=== PATIENT | female | born 1945 | race American Indian/Alaskan Native ===

== ENCOUNTER 2018-11-20 19:42 | Inpatient (IN) | payer MEDICAID, OTHER ==
[2018-11-20] MEDS ORDERED: ASPIRIN PO ONE (20:25)
--- NOTE | 2018-11-20 20:54 | Emergency Department Report ---
ED Chest Pain HPI - General Chief Complaint: Chest Pain Stated Complaint: CHEST PAIN Time Seen by Provider: 11/20/18 20:31 Source: patient, family Mode of arrival: Ambulatory Limitations: Language Barrier - History of Present Illness Initial Comments: 72-year-old black female presents to the emergency department with complaint of midsternal chest pain with radiation towards the back and some associated dizziness. She says that has been going on intermittently over the past few days but started becoming more consistent and intense beginning this morning. She did not take anything for her symptoms prior to presentation. She has a past medical history of back surgery, eye surgery, hypertension. No recent travel or sick contacts at home. She is not a smoker and denies any illicit drug use. Severity scale (0 -10): 7 - Related Data Home Medications Medication Instructions Recorded Confirmed Last Taken No Known Home Medications [No 11/20/18 11/20/18 Unknown Reported Home Medications] Allergies Allergy/AdvReac Type Severity Reaction Status Date / Time No Known Allergies Allergy Verified 11/20/18 20:41 Heart Score - HEART Score History: Moderately suspicious EKG: Normal Age: > 65 Risk factors: 1-2 risk factors Troponin: < normal limit HEART Score: 4 - Critical Actions Critical Actions: 4-6 pts:12-16.6% risk of adverse cardiac event. Should be admitted ED Review of Systems ROS: Stated complaint: CHEST PAIN Other details as noted in HPI Comment: All other systems reviewed and negative Constitutional: denies: chills, fever Eyes: denies: eye pain, vision change ENT: denies: ear pain, throat pain Respiratory: denies: cough, shortness of breath Cardiovascular: chest pain. denies: palpitations Gastrointestinal: denies: abdominal pain, vomiting Genitourinary: denies: dysuria, discharge Musculoskeletal: back pain. denies: arthralgia Skin: denies: rash, lesions Neurological: other (dizziness). denies: headache, weakness ED Past Medical Hx - Past Medical History Hx Hypertension: Yes Additional medical history: Blind right eye - Surgical History Past Surgical History?: Yes Additional Surgical History: Back Surgery - Social History Smoking Status: Never Smoker Substance Use Type: None - Medications Home Medications: Home Medications Medication Instructions Recorded Confirmed Last Taken Type No Known Home Medications [No 11/20/18 11/20/18 Unknown History Reported Home Medications] ED Physical Exam - General Limitations: Language Barrier - Other Other exam information: GENERAL: The patient is well-developed well-nourished. HEENT: Normocephalic. Atraumatic. Patient has moist mucous membranes. EYES: Extraocular motions are intact. NECK: Supple. Trachea is midline. CHEST/LUNGS: Clear to auscultation. There is no respiratory distress noted. HEART/CARDIOVASCULAR: Regular. There is no tachycardia. There is no obvious murmur. ABDOMEN: Abdomen is soft, nontender. Patient has normal bowel sounds. There is no abdominal distention. SKIN: Skin is warm and dry. NEURO: The patient is awake, alert, and oriented. The patient is cooperative. The patient has no focal neurologic deficits. The patient has normal speech. MUSCULOSKELETAL: There is no tenderness or deformity. There is no limitation range of motion. There is no evidence of acute injury. ED Course Vital Signs 11/20/18 11/20/18 11/20/18 20:19 20:20 20:38 Temperature 98.6 F 98.6 F 98.1 F Pulse Rate 63 64 63 Respiratory 18 18 15 Rate Blood Pressure 174/72 174/72 Blood Pressure 161/79 [Left] O2 Sat by Pulse 99 99 100 Oximetry 11/20/18 11/20/18 21:00 22:00 Temperature Pulse Rate 59 L 58 L Respiratory 13 15 Rate Blood Pressure 156/75 161/79 Blood Pressure [Left] O2 Sat by Pulse 100 100 Oximetry JOCELYNN score - Jocelynn Score Age > 65: (1) Yes Aspirin use within the Past 7 Days: (0) No 3 or more CAD Risk Factors: (0) No 2 or more Angina events in past 24 hrs: (1) Yes Known CAD with more than 50% Stenosis: (0) No Elevated Cardiac Markers: (0) No ST Deviation Greater than 0.5mm: (0) No JOCELYNN Score: 2 ED Medical Decision Making - Lab Data Result diagrams: 11/20/18 21:11 11/20/18 21:11 - EKG Data -: EKG Interpreted by Me EKG shows normal: sinus rhythm, axis, intervals, QRS complexes (RBBB), ST-T waves Rate: normal - EKG Data When compared to previous EKG there are: previous EKG unavailable Interpretation: other (RBBB) - Radiology Data Radiology results: image reviewed interpreted by me: Chest x-ray does not show any pneumothorax, pleural effusion, pneumonia or obvious focal consolidation. - Medical Decision Making Patient presents with some midsternal chest pain radiating towards the back and some dizziness. EKG did not show any signs of ST elevation NC. So far, the lab s have been unremarkable including a negative troponin and negative d-dimer. Chest x-ray did not show any focal consolidation, pneumothorax, pneumonia, pleural effusions, or any other acute process. Patient has a moderate heart score and a JOCELYNN score of 2. It is been quite some time since the patient had a stress test, if she had on at all. For this reason the patient will be admitted to the hospital for further evaluation and treatment and was accepted for admission by the hospitalist, Dr. Rivera. - Differential Diagnosis NC, PE, Costochondritis, Pneumonia, CHF Critical Care Time: No Critical care attestation.: If time is entered above; I have spent that time in minutes in the direct care of this critically ill patient, excluding procedure time. ED Disposition Clinical Impression: Acute chest pain Hypertension Qualifiers: Hypertension type: essential hypertension Qualified Code(s): I10 - Essential (primary) hypertension Disposition: OP ADMIT IP TO THIS HOSP Is pt being admited?: Yes Condition: Stable Time of Disposition: 23:52
--- NOTE | 2018-11-20 20:55 | XRay Report ---
PROCEDURE: XR CHEST 1V AP TECHNIQUE: Chest radiograph single view. HISTORY: Chest Pain COMPARISONS: None . FINDINGS: Heart: There is mild cardiomegaly. Mediastinum/Vessels: Normal. Lungs/Pleural space: Lungs are hyperinflated. There are no confluent infiltrates or mass lesions. Pl eural spaces are clear.. Bony thorax: No acute osseous abnormality. Life support devices: None. IMPRESSION: COPD No acute pulmonary process Mild cardiomegaly. This document is electronically signed by Tang Valencia MD., November 20 2018 08:53:28 PM ET
[2018-11-20 21:20] LABS: Hematocrit 36.2 % (30.3-42.9); Hemoglobin 12.4 gm/dl (10.1-14.3); Mean Corpuscular HGB Conc 34 % (30-34); Mean Corpuscular Volume 88 fl (79-97); Platelet Count 191 K/mm3 (140-440); Red Blood Count 4.11 M/mm3 (3.65-5.03); Red Cell Distribution Width 14.8 % (13.2-15.2)
[2018-11-20 21:30] LABS: Lymphocytes % (Auto) 34.5 % (13.4-35.0)
[2018-11-20 21:31] LABS: Basophils % (Auto) 0.7 % (0.0-1.8); Eosinophils # (Auto) 0.1 K/mm3 (0.0-0.4); Eosinophils % (Auto) 1.9 % (0.0-4.3); Lymphocytes # (Auto) 2.4 K/mm3 (1.2-5.4); Monocytes # (Auto) 0.9 K/mm3 (0.0-0.8); Monocytes % (Auto) 12.4 % (0.0-7.3)
[2018-11-20 21:42] LABS: BUN/Creatinine Ratio 16; Blood Urea Nitrogen 18 mg/dL (7-17); Calcium 9.2 mg/dL (8.4-10.2); Hemolysis Index 0
[2018-11-20] MEDS ORDERED: NITROSTAT SL PRN (22:21)
[2018-11-20] MEDS ORDERED: MORPHINE IV PRN (22:26)
[2018-11-20] MEDS ORDERED: NACL 0.9% 1000 ML 1,000 ML ONE (22:27)
[2018-11-20] MEDS ORDERED: TYLENOL PO PRN (22:28)
--- NOTE | 2018-11-20 23:36 | History and Physical Report ---
CHIEF COMPLAINT: Chest pain. HISTORY OF PRESENT ILLNESS: The patient is a 72-year-old female who said she has been having sharp chest pain located in the midsternal area radiating to the back and associated with dizziness. There was no history of shortness of breath. No history of nausea or vomiting. No history of diaphoresis. Pain was relieved with pain medication. Pain is not affected by movement or breathing. The patient was presented for admission. PAST MEDICAL HISTORY: Pertinent for hypertension and blindness in the right eye. PAST SURGICAL HISTORY: Pertinent for back surgery as well as eye surgery. FAMILY HISTORY: Noncontributory. SOCIAL HISTORY: The patient does not smoke, does not drink alcohol, and does not use illicit drugs. MEDICATIONS: The patient's home medications are not known at this time. ALLERGIES: There are no known drug allergies. REVIEW OF SYSTEMS: CONSTITUTIONAL: There is no fever, no chills, no diaphoresis. HEENT: There is no headache or sore throat. CARDIOVASCULAR SYSTEM: Chest pain is present. No orthopnea. RESPIRATORY SYSTEM: There is no shortness of breath or cough. GASTROINTESTINAL SYSTEM: There is no nausea; no vomiting; no abdominal pain, diarrhea, or constipation. NEUROLOGICAL SYSTEM: Dizziness present. No numbness. No altered mental status. MUSCULOSKELETAL SYSTEM: There is no joint pain or swelling. DERMATOLOGICAL SYSTEM: There is no skin rash or itching. GENITOURINARY SYSTEM: There is no dysuria, hematuria, or flank pain. Rest of system review is normal. PHYSICAL EXAMINATION: GENERAL: At the time of exam, the patient was found to be alert, oriented x 3, and not in acute distress. VITAL SIGNS: Shows temperature of 98.6 degrees Fahrenheit, pulse of 63, respirations 18, blood pressure 174/72, O2 sat of 99% on room air. HEENT: Shows pupils on the left eye to be reactive to light and accommodating. Extraocular muscles are intact. NECK: Supple with no JVD or carotid bruit. CARDIOVASCULAR SYSTEM: Shows normal first and second heart sounds with no gallops or murmur. RESPIRATORY SYSTEM: Shows good air entry on both sides of the lung with no abnormal breath sounds. GASTROINTESTINAL SYSTEM: Shows abdomen to be full, soft, nontender with no organomegaly or rigidity. NEUROLOGIC: Shows no focal deficit. MUSCULOSKELETAL SYSTEM: Shows no joint swelling or tenderness. DERMATOLOGICAL SYSTEM: Shows no skin rash. GENITOURINARY SYSTEM: Shows no costovertebral angle tenderness. PERTINENT LABORATORY AND IMAGING STUDIES: The patient had chest x-ray done which shows mild cardiomegaly with no acute pulmonary process and also there is evidence of COPD seen. LABORATORY RESULTS: The patient had CBC done which was unremarkable except for increasing monocyte count of 12.4% in the CBC differential. The patient's coagulation studies were unremarkable. Chemistry was unremarkable. Troponin level came back normal. Brain natriuretic peptide level was normal. DIAGNOSES: 1. Chest pain. 2. Hypertension. PLAN OF CARE: 1. The patient will be admitted to telemetry. 2. The patient will have serial cardiac enzymes involving troponin, total CK, and CK-MB checked every 6 hours x 2 levels. 3. The patient will remain n.p.o. after midnight and will have Lexiscan stress test done in the morning. 4. The patient will be on aspirin 325 mg by mouth daily. 5. The patient will be on IV morphine 2 mg every 3 hours as needed for pain and will be on IV Zofran 4 mg every 8 hours for nausea and vomiting. 6. The patient will be on nitro paste half inch to anterior chest wall q. 6 hours and will also be on Nitrostat 0.4 mg sublingual every 5 minutes as needed for breakthrough chest pain. 7. The patient will be on heparin 5000 units subcutaneous q. 12 hours for DVT prophylaxis and will be on Tylenol 650 mg by mouth every 6 hours for fever and headache. 8. The patient will be on oxygen by nasal cannula 2 liters per minute. 9. The patient will be on I.v Hydralazine 10mg q4h for BP of 160/90 or more JOB# [id number] OCN/NTS MTDD
[2018-11-21] MEDS: NITRO-BID 2% TP SCH ×5 (00:02→17:23)
[2018-11-21] MEDS ORDERED: APRESOLINE IV PRN (00:22)
[2018-11-21 08:08] LABS: Creatine Kinase MB 2.5 ng/mL (0.0-4.0)
[2018-11-21] MEDS: APRESOLINE PO SCH ×2 (08:28→17:20)
[2018-11-21] MEDS: ASPIRIN PO SCH (10:14)
[2018-11-21] MEDS: NORVASC PO SCH (10:15)
[2018-11-21] MEDS: HEPARIN SUB-Q SCH ×2 (10:16→21:01)
--- NOTE | 2018-11-21 11:54 | Progress Note ---
Assessment and Plan Assessment and plan: Chest pain r/o ACS -Serial troponin levels negative -For stress test in a.m. Hypertension -Uncontrolled -Antihypertensives started, adjust as needed Disposition: For discharge if stress test is negative History Interval history: Patient continues to complain of midsternal chest pain Hospitalist Physical - Constitutional Vitals: Temp Pulse Resp BP Pulse Ox 98.1 F 73 18 136/61 98 11/20/18 20:38 11/21/18 10:49 11/21/18 10:49 11/21/18 10:15 11/21/18 10:49 General appearance: Present: no acute distress, well-nourished - EENT Eyes: Present: PERRL, EOM intact ENT: hearing intact, clear oral mucosa - Neck Neck: Present: supple - Respiratory Respiratory effort: normal Respiratory: bilateral: CTA - Cardiovascular Rhythm: regular Heart Sounds: Present: S1 & S2 - Extremities Extremities: No edema - Abdominal General gastrointestinal: soft, non-tender, non-distended, normal bowel sounds - Integumentary Integumentary: Present: clear, warm, dry - Neurologic Neurologic: CNII-XII intact Results - Labs CBC & Chem 7: 11/20/18 21:11 11/20/18 21:11 Labs: Laboratory Last Values WBC 7.0 K/mm3 (4.5-11.0) 11/20/18 21:11 RBC 4.11 M/mm3 (3.65-5.03) 11/20/18 21:11 Hgb 12.4 gm/dl (10.1-14.3) 11/20/18 21:11 Hct 36.2 % (30.3-42.9) 11/20/18 21:11 MCV 88 fl (79-97) 11/20/18 21:11 MCH 30 pg (28-32) 11/20/18 21:11 MCHC 34 % (30-34) 11/20/18 21:11 RDW 14.8 % (13.2-15.2) 11/20/18 21:11 Plt Count 191 K/mm3 (140-440) 11/20/18 21:11 Lymph % (Auto) 34.5 % (13.4-35.0) 11/20/18 21:11 [place] % (Auto) 12.4 % (0.0-7.3) H 11/20/18 21:11 Eos % (Auto) 1.9 % (0.0-4.3) 11/20/18 21:11 Baso % (Auto) 0.7 % (0.0-1.8) 11/20/18 21:11 Lymph # 2.4 K/mm3 (1.2-5.4) 11/20/18 21:11 [place] # 0.9 K/mm3 (0.0-0.8) H 11/20/18 21:11 Eos # 0.1 K/mm3 (0.0-0.4) 11/20/18 21:11 Baso # 0.0 K/mm3 (0.0-0.1) 11/20/18 21:11 Seg Neutrophils % 50.5 % (40.0-70.0) 11/20/18 21:11 Seg Neutrophils # 3.5 K/mm3 (1.8-7.7) 11/20/18 21:11 D-Dimer 188.62 ng/mlDDU (0-234) 11/20/18 20:43 Sodium 141 mmol/L (137-145) 11/20/18 21:11 Potassium 4.5 mmol/L (3.6-5.0) 11/20/18 21:11 Chloride 102.5 mmol/L (98-107) 11/20/18 21:11 Carbon Dioxide 28 mmol/L (22-30) 11/20/18 21:11 Anion Gap 15 mmol/L 11/20/18 21:11 BUN 18 mg/dL (7-17) H 11/20/18 21:11 Creatinine 1.1 mg/dL (0.7-1.2) 11/20/18 21:11 Estimated GFR 59 ml/min 11/20/18 21:11 BUN/Creatinine Ratio 16 % 11/20/18 21:11 Glucose 98 mg/dL (65-100) 11/20/18 21:11 Calcium 9.2 mg/dL (8.4-10.2) 11/20/18 21:11 Total Creatine Kinase 117 units/L (30-135) 11/21/18 07:22 CK-MB (CK-2) 2.5 ng/mL (0.0-4.0) 11/21/18 07:22 CK-MB (CK-2) Rel Index 2.1 (0-4) 11/21/18 07:22 Troponin T < 0.010 ng/mL (0.00-0.029) 11/21/18 07:22 NT-Pro-B Natriuret Pep 143.0 pg/mL (0-900) 11/20/18 20:43 Active Medications - Current Medications Current Medications: Generic Name Dose Route Start Last Admin Trade Name Freq PRN Reason Stop Dose Admin Acetaminophen 650 mg 11/20/18 22:28 Tylenol PO Q6H PRN Fever >101 Amlodipine Besylate 10 mg 11/21/18 10:00 11/21/18 10:15 Norvasc PO 10 mg QDAY RAYMOND Administration Aspirin 325 mg 11/21/18 10:00 11/21/18 10:14 Aspirin PO 325 mg QDAY RAYMOND Administration Heparin Sodium (Porcine) 5,000 unit 11/21/18 10:00 11/21/18 10:16 Heparin SUB-Q 5,000 unit Q12HR RAYMOND Administration Hydralazine HCl 10 mg 11/21/18 00:22 Apresoline IV Q4H PRN Blood Pressure Hydralazine HCl 50 mg 11/21/18 08:00 11/21/18 08:28 Apresoline PO 50 mg Q8H RAYMOND Administration Morphine Sulfate 2 mg 11/20/18 22:26 11/21/18 08:29 Morphine IV 2 mg Q3H PRN Administration Pain, Moderate (4-6) Nitroglycerin 0.4 mg 11/20/18 22:21 Nitrostat SL .Q5MIN PRN Chest Pain Nitroglycerin 0.5 inch 11/20/18 23:00 11/21/18 10:15 Nitro-Bid 2% TP 0.5 inch QIDNTG RAYMOND Administration Protocol Ondansetron HCl 4 mg 11/20/18 22:27 Zofran IV Q8H PRN Nausea And Vomiting
[2018-11-21] MEDS: PROTONIX PO SCH (13:15)
[2018-11-22] MEDS: APRESOLINE PO SCH ×3 (00:40→16:53)
[2018-11-22] MEDS: NITRO-BID 2% TP SCH ×3 (06:10→14:08)
[2018-11-22] MEDS ORDERED: LEXISCAN IV ONE ×2 (10:04→10:05)
[2018-11-22] MEDS ORDERED: ZOFRAN ONE (10:35)
[2018-11-22] MEDS: ZOFRAN IV PRN ×2 (10:35→12:38)
--- NOTE | 2018-11-22 12:14 | Discharge Summary ---
Providers - Providers Date of Admission: 11/20/18 22:17 Date of discharge: 11/22/18 Attending physician: AUTUMN SHAH Primary care physician: [facility] MD [facility] Hospitalization Condition: Good Pertinent studies: Stress test unremarkable Hospital course: She presented noncardiac chest pain most likely is gastrointestinal. Recent cardiac workup unremarkable. Disposition: TO HOME OR SELFCARE - Discharge Diagnoses (1) Acute chest pain Status: Acute (2) Hypertension Status: Acute Qualifiers: Hypertension type: essential hypertension Qualified Code(s): I10 - Essential (primary) hypertension Core Measure Documentation - Palliative Care Palliative Care/ Comfort Measures: Not Applicable - Core Measures Any of the following diagnoses?: none Exam - Constitutional Vitals: Temp Pulse Resp BP Pulse Ox 97.9 F 75 19 123/53 99 11/22/18 05:03 11/22/18 10:00 11/22/18 10:00 11/22/18 10:42 11/22/18 10:00 General appearance: Present: no acute distress, well-nourished - EENT Eyes: Present: PERRL ENT: hearing intact, clear oral mucosa - Neck Neck: Present: supple, normal ROM - Respiratory Respiratory effort: normal Respiratory: bilateral: CTA - Cardiovascular Heart Sounds: Present: S1 & S2. Absent: rub, click - Extremities Extremities: pulses symmetrical, No edema Peripheral Pulses: within normal limits - Abdominal General gastrointestinal: Present: soft, non-tender, non-distended, normal bowel sounds Female genitourinary: Present: normal - Integumentary Integumentary: Present: clear, warm, dry - Musculoskeletal Musculoskeletal: gait normal, strength equal bilaterally - Psychiatric Psychiatric: appropriate mood/affect, intact judgment & insight - Neurologic Neurologic: CNII-XII intact, moves all extremities Plan Activity: no restrictions Weight Bearing Status: Full Weight Bearing Diet: low cholesterol Follow up with: JB GARCIA MD [Primary Care Provider] - 7 Days Prescriptions: amLODIPine [Norvasc] 10 mg PO QDAY #30 tablet
[2018-11-22] MEDS: PROTONIX PO SCH (12:39)
[2018-11-22] MEDS: ASPIRIN PO SCH (12:39)
[2018-11-22] MEDS: NORVASC PO SCH (12:39)
[2018-11-22] MEDS: HEPARIN SUB-Q SCH (12:40)
--- NOTE | 2018-11-22 23:02 | Treadmill Report ---
NUCLEAR PERFUSION SCAN REFERRING PHYSICIAN: Chilo Rivera MD PROTOCOL: The patient was brought to the stress lab in the postabsorptive state, given 10 mCi of technetium 99m at rest. The patient underwent rest imaging. The patient underwent Lexiscan stress test. At peak stress, the patient was given 32 mCi of technetium 99m. Shortly thereafter, the patient underwent stress imaging. Raw imaging reveals mild GI artifact. No significant motion artifact. SPECT imaging examined carefully in horizontal long axis, vertical long axis, short axis views. There is normal homogenous uptake of radioisotope in all reported segments. No evidence of significant fixed or reversible perfusion defects suggestive of prior infarction or ischemia. Gated wall motion reveals normal systolic thickening, calculated ejection fraction of 61%. No TID. CONCLUSIONS: 1. Normal myocardial perfusion scan without evidence of active ischemia or prior infarction. 2. Normal left ventricular systolic performance without evidence of transient ischemic dilatation or stress-induced segmental wall motion abnormalities. Lexiscan stress test reported separately. JOB# [id number] SBM/NTS
[2018-11-23 17:51] VITALS: BP 140/61
== END 2018-11-22 18:42 | disposition home or self-care (01) | DRG 313 ==
LOC: ED 19:42 → 4A 22:17
PROVIDERS: ADMIT Internal Medicine; ATTEND Internal Medicine
DX: R07.89 Other chest pain (principal); I10 Essential (primary) hypertension
CPT/HCPCS: 36415; 71045; 78452; 80048; 82550; 82553; 83880; 84484; 85025; 85379; 93005; 93010; 93017; 96374; G0378; A9502; J1644; J2270; J2405; J2785; J7030